=== PATIENT | female | born 1990 | race Two or more races ===

== ENCOUNTER 2022-02-06 10:56 | Outpatient (REF) | payer MEDICARE, MEDICAID, SELFPAY ==
--- NOTE | ~2022-02-06 | MR_ITS ---
EXAMINATION: MR BRAIN WITHOUT AND WITH CONTRAST CLINICAL INFORMATION: Intractable epilepsy, status post left mesial temporal resection. COMPARISON: There are no prior studies available for comparison at time of dictation. TECHNIQUE: Multiplanar, multisequence MRI of the brain was obtained before and after the intravenous administration of 5 mL Gadavist. FINDINGS: No diffusion abnormalities are identified to suggest an acute or subacute infarct. No mass effect or midline shift is seen. There are sequelae of a left temporal craniotomy for a left anterior temporal lobe resection. Gliotic changes are noted surrounding the region of the surgery, and there is CSF in the left anterior middle cranial fossa. There is mild ex-vacuo dilatation of the temporal horn of the left lateral ventricle, and overall the left lateral ventricle is mildly more prominent compared to the right. No other discrete extra-axial fluid collections are seen. The brainstem appears normal. On postcontrast imaging, there is no abnormal parenchymal or leptomeningeal enhancement. There is no evidence of acute hemorrhage. The cerebellar tonsils have normal contour and position, and the craniocervical junction appears normal. Marrow signal and midline structures are normal. The major intracranial flow-voids at the level of the [place] are preserved. The dural venous sinus flow-voids are maintained. The mastoid air cells and paranasal sinuses are well-aerated. MR/MR head/brain wo/w con IMPRESSION: 1. There are no acute bleeds or infarcts. There are no masses or areas of abnormal enhancement. 2. There are sequelae of a left anterior temporal lobe resection with gliotic changes and surrounding CSF. 3. If prior studies become available, comparison can be made to assess for any interval changes.
== END 2022-02-06 10:57 | disposition home or self-care (01) ==
LOC: HO.MRI 10:56
PROVIDERS: Visit Provider Psychiatry & Neurology Neurology
DX: G40.919 Epilepsy, unspecified, intractable, without status epilepticus (principal)
CPT/HCPCS: 70553; A9585

== ENCOUNTER 2022-07-02 13:06 | Outpatient (REF) | payer MEDICARE, MEDICAID, SELFPAY ==
[2022-07-02 15:31] LABS: Valproate 72.6 mcg/mL (50.0-100.0)
[2022-07-02 15:32] LABS: Anion Gap 16 (12-20); Carbon Dioxide 25 mmol/L (22-29); Chloride 103 mmol/L (96-108); Potassium 4.5 mmol/L (3.3-5.1); Sodium 139 mmol/L (135-145)
== END 2022-07-02 13:07 | disposition home or self-care (01) ==
LOC: HO.LAB 13:06
PROVIDERS: Visit Provider Psychiatry & Neurology Neurology
DX: G40.909 Epilepsy, unspecified, not intractable, without status epilepticus (principal)
CPT/HCPCS: 36415; 80051; 80164